=== PATIENT | female | born 1960 | race Caucasian/White ===

== ENCOUNTER 2017-08-15 06:56 | Day surgery (SDC) | payer BC ==
[~2017-08-15] VITALS: Ht 157.5 cm; Wt 49.0 kg
[~2017-08-15 06:56] MED LIST: ALIGN4 MG PO; GINGER250 MG PO; KLONOPIN0.5 M1 PO; NEURONTIN100 MG PO; NOHOMEMEDS; ONDANSETRON HCL4 MG PO; PANTOPRAZOLE SO40 MG PO; PROMETHAZINE12.5 M1 PO; PROTONIX40 MG PO; RANITIDINE HCL300 MG PO; REMERON30 M2 PO; TRANSDERM-SCO1 PATCH TD; ZOFRAN8 MG PO
[2017-08-15 07:21] VITALS: BP 103/64
[2017-08-15] MEDS ORDERED: HYDROCODON-ACE1 EA11 PO (10:25)
[2017-08-15 13:15] VITALS: BP 96/56
[2017-08-15 14:00] VITALS: BP 116/70
[2017-08-15 15:51] VITALS: BP 123/63
== END 2017-08-15 15:52 | disposition home or self-care (01) ==
LOC: SDC 06:56
PROC: 0WUF0JZ Supplement Abdominal Wall with Synthetic Substitute, Open Approach (ICD-10-PCS; principal; 2017-08-15)
DX: K43.2 Incisional hernia without obstruction or gangrene (principal); K66.0 Peritoneal adhesions (postprocedural) (postinfection); K21.9 Gastro-esophageal reflux disease without esophagitis; K31.84 Gastroparesis; K58.9 Irritable bowel syndrome, unspecified; Z87.891 Personal history of nicotine dependence
CPT/HCPCS: C1781; J0131; J0330; J1100; J1170; J1885; J2250; J2405; J2710; J3010; Q0175; S0020; S0074

== ENCOUNTER 2017-08-25 13:36 | Inpatient (IN) | payer BC ==
[~2017-08-25] VITALS: Ht 162.6 cm; Wt 48.6 kg
[~2017-08-25 13:36] MED LIST changes: +HYDROCODON-ACE1 EA11 PO
[2017-08-25 15:35] LABS: HEMATOCRIT 38.9 % (36.0-46.0); MCH 33.7 PG (29.0-34.0); MCHC 35.7 G/DL (30.0-36.0); MCV 94.2 FL (83-99); MEAN PLAT.VOLUME 9.4 uM^3 (9.5-12.4); PLATELET COUNT 324 K/uL (156-360); RED BLOOD COUNT 4.13 M/uL (3.80-5.20); WHITE BLOOD COUNT 16.5 K/uL (4.1-10.2)
[2017-08-25 15:44] LABS: CHLORIDE 100 mEq/L (99-109); POTASSIUM 3.5 mEq/L (3.7-5.4); SODIUM 140 mEq/L (136-147)
[2017-08-25 15:46] LABS: GLUCOSE 107 mg/dL (70-99)
[2017-08-25 15:48] LABS: ANION GAP 14 MEQ/L (2-14); TOTAL BILIRUBIN 0.5 mg/dL (0.0-1.0)
[2017-08-25 15:50] LABS: ALKALINE PHOSPHATASE 79 IU/L (3-129); GFR ESTIMATE (CALCULATED) > 59 mL/min/
[2017-08-25 15:51] LABS: UREA NITROGEN (BUN) 16 mg/dL (9-23)
[2017-08-25 15:53] LABS: LIPASE 210 U/L (1.0-51.0)
[2017-08-25 16:40] LABS: ADD MIUA? YES; BILIRUBIN NEGATIVE; BLOOD LARGE; COLOR YELLOW ((YELLOW)); GLUCOSE (STRIP) NEGATIVE; KETONES 20; LEUKOCYTES TRACE; NITRITE NEGATIVE; PROTEIN (STRIP) 100; SPECIFIC GRAVITY 1.027 (1.000-1.030); UROBILINOGEN 0.2 MG/DL (0.2-1.0)
[2017-08-25 17:21] LABS: BACTERIA 2+ /HPF; EPITHELIAL CELLS 4+ /HPF; MUCUS 4+ /LPF; RED BLOOD CELLS 15-20 /HPF (0-5)
[2017-08-25] MEDS ORDERED: ONDANSETRON ODT8 MG PO (18:18)
[2017-08-25] MEDS ORDERED: LAMOTRIGINE25 MG PO (18:18)
[2017-08-25] MEDS ORDERED: DICYCLOMINE HCL10 MG PO (18:18)
[2017-08-25] MEDS ORDERED: CLONAZEPAM0.5 MG PO (18:19)
[2017-08-25] MEDS ORDERED: METOCLOPRAMIDE H5 MG PO (18:19)
[2017-08-25] MEDS ORDERED: BUSPAR10 MG PO (18:19)
[2017-08-25] MEDS ORDERED: PANTOPRAZOLE SO40 MG PO (18:19)
[2017-08-25 23:36] VITALS: BP 128/64
[2017-08-26 06:34] LABS: BASOPHIL COUNT 0.1 K/uL (0-0.1); EOSINOPHIL (%) 0.3 % (0-5); HEMATOCRIT 34.3 % (36.0-46.0); IMMATURE GRANULOCYTE (%) 0.4 % (0.0-0.7); IMMATURE GRANULOCYTE COUNT 0.1 K/uL; INSTRUMENT ABS NEUTROPHIL CT 8.5 K/uL; LYMPHOCYTE COUNT 2.3 K/uL (1.0-2.8); MCH 33.7 PG (29.0-34.0); MCHC 34.7 G/DL (30.0-36.0); MCV 97.2 FL (83-99); MEAN PLAT.VOLUME 9.7 uM^3 (9.5-12.4); MONOCYTE (%) 8.6 % (3-12); NEUTROPHIL (%) 70.9 % (45-76); NEUTROPHIL COUNT 8.5 K/uL (1.8-6.4); PLATELET COUNT 264 K/uL (156-360); RBC DIS.WIDTH-CV 12.1 % (11.8-14.6); RBC DIS.WIDTH-SD 43.5 % (39-53); RED BLOOD COUNT 3.53 M/uL (3.80-5.20)
[2017-08-26 06:51] LABS: ALKALINE PHOSPHATASE 61 IU/L (3-129); ANION GAP 9 MEQ/L (2-14); CHLORIDE 104 MEQ/L (99-109); GFR ESTIMATE (CALCULATED) > 59 mL/min/; GLUCOSE 108 mg/dL (70-99); LIPASE 67 U/L (1.0-51.0); POTASSIUM 4.3 MEQ/L (3.7-5.4); SAMPLE HEMOLYSIS CHECK 0; SAMPLE ICTERIC CHECK 0; SAMPLE LIPEMIA CHECK 0; SODIUM 140 MEQ/L (136-147); TOTAL BILIRUBIN 0.4 MG/DL (0.0-1.0); UREA NITROGEN (BUN) 14 mg/dL (9-23)
[2017-08-26 07:11] VITALS: BP 105/64
[2017-08-26 15:18] VITALS: BP 145/71
[2017-08-26 23:54] VITALS: BP 131/64
[2017-08-27 05:36] LABS: BASOPHIL COUNT 0.1 K/uL (0-0.1); EOSINOPHIL (%) 1.3 % (0-5); EOSINOPHIL COUNT 0.2 K/uL (0-0.3); HEMATOCRIT 35.4 % (36.0-46.0); IMMATURE GRANULOCYTE (%) 0.4 % (0.0-0.7); IMMATURE GRANULOCYTE COUNT 0.1 K/uL; INSTRUMENT ABS NEUTROPHIL CT 10.1 K/uL; LYMPHOCYTE COUNT 2.7 K/uL (1.0-2.8); MCH 33.2 PG (29.0-34.0); MCV 94.7 FL (83-99); MONOCYTE (%) 10.1 % (3-12); MONOCYTE COUNT 1.5 K/uL (0-0.8); NEUTROPHIL (%) 69.3 % (45-76); NEUTROPHIL COUNT 10.1 K/uL (1.8-6.4); PLATELET COUNT 281 K/uL (156-360); RBC DIS.WIDTH-CV 11.8 % (11.8-14.6); RBC DIS.WIDTH-SD 40.7 % (39-53); RED BLOOD COUNT 3.74 M/uL (3.80-5.20); WHITE BLOOD COUNT 14.6 K/uL (4.1-10.2)
[2017-08-27 06:19] LABS: ANION GAP 8 MEQ/L (2-14); CHLORIDE 103 MEQ/L (99-109); GFR ESTIMATE (CALCULATED) > 59 mL/min/; GLUCOSE 105 mg/dL (70-99); LIPASE 97 U/L (1.0-51.0); POTASSIUM 3.5 MEQ/L (3.7-5.4); SAMPLE HEMOLYSIS CHECK 0; SAMPLE ICTERIC CHECK 0; SAMPLE LIPEMIA CHECK 0; SODIUM 138 MEQ/L (136-147); UREA NITROGEN (BUN) 7 mg/dL (9-23)
[2017-08-27 06:53] VITALS: BP 162/69
[2017-08-27 15:18] VITALS: BP 139/67
[2017-08-28 00:49] VITALS: BP 145/79
[2017-08-28 06:07] LABS: BASOPHIL COUNT 0.1 K/uL (0-0.1); EOSINOPHIL (%) 3.6 % (0-5); EOSINOPHIL COUNT 0.5 K/uL (0-0.3); IMMATURE GRANULOCYTE (%) 0.3 % (0.0-0.7); IMMATURE GRANULOCYTE COUNT 0.1 K/uL; INSTRUMENT ABS NEUTROPHIL CT 9.1 K/uL; LYMPHOCYTE COUNT 3.1 K/uL (1.0-2.8); MCH 32.5 PG (29.0-34.0); MCV 92.9 FL (83-99); MEAN PLAT.VOLUME 9.6 uM^3 (9.5-12.4); MONOCYTE (%) 9.8 % (3-12); MONOCYTE COUNT 1.4 K/uL (0-0.8); NEUTROPHIL (%) 63.7 % (45-76); NEUTROPHIL COUNT 9.1 K/uL (1.8-6.4); PLATELET COUNT 312 K/uL (156-360); RBC DIS.WIDTH-CV 11.5 % (11.8-14.6); RBC DIS.WIDTH-SD 39.6 % (39-53); RED BLOOD COUNT 4.09 M/uL (3.80-5.20); WHITE BLOOD COUNT 14.3 K/uL (4.1-10.2)
[2017-08-28 06:54] LABS: ANION GAP 11 MEQ/L (2-14); CHLORIDE 104 MEQ/L (99-109); GFR ESTIMATE (CALCULATED) > 59 mL/min/; GLUCOSE 93 mg/dL (70-99); LIPASE 33 U/L (1.0-51.0); POTASSIUM 3.3 MEQ/L (3.7-5.4); SAMPLE HEMOLYSIS CHECK 0; SAMPLE ICTERIC CHECK 0; SAMPLE LIPEMIA CHECK 0; SODIUM 141 MEQ/L (136-147); UREA NITROGEN (BUN) 6 mg/dL (9-23)
[2017-08-28 07:31] VITALS: BP 159/87
[2017-08-28 23:05] VITALS: BP 158/62
[2017-08-29 06:42] LABS: ANION GAP 7 MEQ/L (2-14); CHLORIDE 106 MEQ/L (99-109); GFR ESTIMATE (CALCULATED) > 59 mL/min/; GLUCOSE 95 mg/dL (70-99); POTASSIUM 3.1 MEQ/L (3.7-5.4); SAMPLE HEMOLYSIS CHECK 0; SAMPLE ICTERIC CHECK 0; SAMPLE LIPEMIA CHECK 0; SODIUM 141 MEQ/L (136-147); UREA NITROGEN (BUN) 5 mg/dL (9-23)
[2017-08-29 06:58] LABS: BASOPHIL COUNT 0.1 K/uL (0-0.1); EOSINOPHIL COUNT 0.6 K/uL (0-0.3); HEMATOCRIT 31.4 % (36.0-46.0); IMMATURE GRANULOCYTE (%) 0.5 % (0.0-0.7); IMMATURE GRANULOCYTE COUNT 0.1 K/uL; INSTRUMENT ABS NEUTROPHIL CT 5.9 K/uL; LYMPHOCYTE COUNT 2.8 K/uL (1.0-2.8); MCH 33.4 PG (29.0-34.0); MCHC 35.7 G/DL (30.0-36.0); MCV 93.7 FL (83-99); MEAN PLAT.VOLUME 9.7 uM^3 (9.5-12.4); MONOCYTE (%) 9.4 % (3-12); NEUTROPHIL (%) 56.8 % (45-76); NEUTROPHIL COUNT 5.9 K/uL (1.8-6.4); PLATELET COUNT 243 K/uL (156-360); RBC DIS.WIDTH-CV 11.8 % (11.8-14.6); RBC DIS.WIDTH-SD 39.7 % (39-53); RED BLOOD COUNT 3.35 M/uL (3.80-5.20); WHITE BLOOD COUNT 10.5 K/uL (4.1-10.2)
[2017-08-29 07:19] VITALS: BP 107/67
== END 2017-08-29 14:00 | disposition home or self-care (01) | DRG 439 ==
LOC: EME 13:36 → EDOF 17:42 → 5EAST 17:42 → ENRESERV 17:46 → 5EAST 20:27 → ENPENDDIS 08-29 13:51 → 5EAST 08-29 14:00
PROVIDERS: Family Medicine; Nurse Practitioner Family
DX: K85.90 Acute pancreatitis without necrosis or infection, unspecified (principal); Z68.1 Body mass index [BMI] 19.9 or less, adult; K58.0 Irritable bowel syndrome with diarrhea; Z87.891 Personal history of nicotine dependence; F31.9 Bipolar disorder, unspecified; K21.9 Gastro-esophageal reflux disease without esophagitis; F41.9 Anxiety disorder, unspecified; G43.909 Migraine, unspecified, not intractable, without status migrainosus; R63.6 Underweight
CPT/HCPCS: 74177; 80048; 80053; 81003; 83605; 83690; 85025; 85027; 87086; 93005; 99281; 99285; C9113; J0696; J1170; J2405; J2765; J7030; J7042; S0028